=== PATIENT | male | born 1975 | race Two or more races ===

== ENCOUNTER 2020-07-16 08:33 | Day surgery (SDC) | payer OTHER ==
[~2020-07-16 08:33] MED LIST: ADULT LOW DOSE81 M1 PO; COZAAR100 MG PO; GLIMEPIRIDE4 MG; TOPROL XL25 M1 PO
[2020-07-16] MEDS ORDERED: MELOXICAM7.5 MG PO (15:35)
[2020-07-16] MEDS ORDERED: AMOX1TAB5 PO (15:35)
== END 2020-07-16 17:35 | disposition home or self-care (01) ==
LOC: CIR.AMB 08:33
PROVIDERS: ATTEND Surgery
DX: N47.1 Phimosis (principal); Z20.822 Contact with and (suspected) exposure to COVID-19